=== PATIENT | male | born 1990 | race Caucasian/White ===

== ENCOUNTER 2017-01-05 14:12 | Observation (INO) | payer OTHER ==
[~2017-01-05] VITALS: Ht 182.9 cm; Wt 97.5 kg
[~2017-01-05 14:12] MED LIST: AUGM875T PO; FLUT1SPR9 EACH NARE; PRED20 PO; VENTAER INH
[2017-01-05 14:15] VITALS: BP 138/76; PULSE 62; RESP 23; TEMP 98.3; O2SAT 100
[2017-01-05 14:19] VITALS: BP 138/76; PULSE 58; RESP 23; TEMP 98.5; O2SAT 100
--- NOTE | 2017-01-05 14:24 | PD ---
HPI Chief Complaint: Chest Pain Time Seen by Provider: 14:23 Travel History International Travel<30 days: No Contact w/Intl Traveler<30days: No Traveled to known affect area: No History of Present Illness HPI Patient is a 26-year-old male presents emergency Department with neck pain on the left side of his neck radiating down into his chest and into his arm. Patient's states that initially he thought that he just slept wrong [facility] which showed an acute STEMI and he was transported here emergently as a STEMI alert. The patient states she's never had any heart problems no family history of heart problems at an early age, no high blood pressure high cholesterol. He states that he is trying to get back in shape to rejoin the arm services and states that he runs and never expressed any chest pain when he runs. 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 States symptoms been going on for 3 days in moderate severity and gradually worsening. [facility] Past Medical History Medical History: Denies Significant Hx Diminished Hearing: No Past Surgical History Oral Surgery: Yes (wisdom) Social History Alcohol Use: No Tobacco Use: No (quit) Substance Use: No Allergies-Medications (Allergen,Severity, Reaction): Coded Allergies: No Known Allergies (Unverified , 01/05/17) Reported Meds & Prescriptions Reported Meds & Active Scripts Active No Active Prescriptions or Reported Medications Review of Systems Except as stated in HPI: all other systems reviewed are Neg Physical Exam Narrative GENERAL: Well-developed, well-nourished in no apparent distress. SKIN: Focused skin assessment warm/dry. HEAD: Atraumatic. Normocephalic. EYES: Pupils equal and round. No scleral icterus. No injection or drainage. ENT: No nasal bleeding or discharge. Mucous membranes pink and moist. NECK: Trachea midline. No JVD. CARDIOVASCULAR: Regular rate and rhythm. No murmur appreciated. RESPIRATORY: No accessory muscle use. Clear to auscultation. Breath sounds equal bilaterally. GASTROINTESTINAL: Abdomen soft, non-tender, nondistended. Hepatic and splenic margins not palpable. MUSCULOSKELETAL: No obvious deformities. No clubbing. No cyanosis. No edema. NEUROLOGICAL: Awake and alert. No obvious cranial nerve deficits. Motor grossly within normal limits. Normal speech. PSYCHIATRIC: Appropriate mood and affect; insight and judgment normal. Data Data Last Documented VS Vital Signs Date Time Temp Pulse Resp B/P Pulse Ox O2 Delivery O2 Flow Rate FiO2 01/05/17 15:50 64 18 119/60 100 Nasal Cannula 2 01/05/17 14:30 98.5 Orders Electrocardiogram (01/05/17 14:23) Ckmb (Isoenzyme) Profile (01/05/17 14:23) Complete Blood Count With Diff (01/05/17 14:23) Comprehensive Metabolic Panel (01/05/17 14:) Magnesium (Mg) (01/05/17 14:23) Prothrombin Time / Inr (Pt) (01/05/17 14:23) Act Partial Throm Time (Ptt) (01/05/17 14:23) Troponin I (01/05/17 14:) Chest, Single Ap (01/05/17 14:23) Ecg Monitoring (01/05/17 14:23) Iv Access Insert/Monitor (01/05/17 14:23) Oximetry (01/05/17 14:) Oxygen Administration (01/05/17 14:23) Sodium Chloride 0.9% Flush (Ns Flush) (01/05/17 14:30) CKMB (01/05/17 14:25) CKMB% (01/05/17 14:25) Admit Order (Ed Use Only) (01/05/17 ) Labs Laboratory Tests Test 01/05/17 14:25 White Blood Count 9.0 TH/MM3 Red Blood Count 5.61 MIL/MM3 Hemoglobin 15.5 GM/DL Hematocrit 45.0 % Mean Corpuscular Volume 80.2 FL Mean Corpuscular Hemoglobin 27.5 PG Mean Corpuscular Hemoglobin 34.3 % Concent Red Cell Distribution Width 13.0 % Platelet Count 235 TH/MM3 Mean Platelet Volume 9.2 FL Neutrophils (%) (Auto) 65.5 % Lymphocytes (%) (Auto) 24.2 % Monocytes (%) (Auto) 7.8 % Eosinophils (%) (Auto) 2.1 % Basophils (%) (Auto) 0.4 % Neutrophils # (Auto) 5.9 TH/MM3 Lymphocytes # (Auto) 2.2 TH/MM3 Monocytes # (Auto) 0.7 TH/MM3 Eosinophils # (Auto) 0.2 TH/MM3 Basophils # (Auto) 0.0 TH/MM3 CBC Comment DIFF FINAL Differential Comment Prothrombin Time 10.7 SEC Prothromb Time International 1.0 RATIO Ratio Activated Partial 25.0 SEC Thromboplast Time Sodium Level 141 MEQ/L Potassium Level 4.5 MEQ/L Chloride Level 108 MEQ/L Carbon Dioxide Level 26.4 MEQ/L Anion Gap 7 MEQ/L Blood Urea Nitrogen 16 MG/DL Creatinine 1.18 MG/DL Estimat Glomerular Filtration 75 ML/MIN Rate Random Glucose 85 MG/DL Calcium Level 8.5 MG/DL Magnesium Level 2.0 MG/DL Total Bilirubin 0.5 MG/DL Aspartate Amino Transf 23 U/L (AST/SGOT) Alanine Aminotransferase 35 U/L (ALT/SGPT) Alkaline Phosphatase 104 U/L Total Creatine Kinase 216 U/L Creatine Kinase MB 0.8 NG/ML Troponin I LESS THAN 0.02 NG/ML Total Protein 7.6 GM/DL Albumin 3.7 GM/DL [facility] Medical Decision Making Medical Screen Exam Complete: Yes Emergency Medical Condition: Yes Interpretation(s) EKG shows normal sinus rhythm normal axis normal R-wave progression. Overall rate is 59, there is some small sinus arrhythmia. Intervals within normal limits. There is J-point elevation in II, III, and F aVF without any reciprocal changes. This is a borderline EKG. Differential Diagnosis ACS, AMI, torticollis, Narrative Course Patient was roomed in emergency department, I reviewed his EKGs prior to arrival and in the emergency department, I think the ST elevation seen 23 and aVF is more consistent with early repolarization. He does have a fair story for ACS but his troponin is negative, I think that at this juncture the patient does not meet STEMI criteria however given that there is been significant [facility] and [facility] showing acute STEMI he would benefit from a cardiology consultation and/or stress test. The patient is followed by the [facility] who referred him here for his EKG findings and I think it would be more appropriate to put him in observation status for rapid exclusion rather than [facility] which may take some time. This was discussed with the patient who is agreeable for observation. Diagnosis Primary Impression: Chest pain Admitting Information Admitting Physician Requests: Observation Scripts No Active Prescriptions or Reported Meds Condition: Stable Reji Romano MD Jan 05, 2017 14:24
[2017-01-05 14:30] VITALS: BP 138/86; PULSE 59; RESP 18; TEMP 98.5; O2SAT 100
[2017-01-05] MEDS ORDERED: SODIUM CHLORIDE 0.9% FLUSH 10 ML FLUSH IVF PRN (14:30)
[2017-01-05 14:54] LABS: AUTOMATED NEUTROPHIL # 5.9 TH/MM3 (1.8-7.7); BASOPHIL % 0.4 % (0.0-2.0); EOSINOPHIL # 0.2 TH/MM3 (0-0.4); EOSINOPHIL % 2.1 % (0.0-4.0); HEMO FLAGS DIFF FINAL; LYMPH % 24.2 % (9.0-44.0); LYMPHOCYTE # 2.2 TH/MM3 (1.0-4.8); MEAN CELL VOLUME 80.2 FL (80.0-100.0); MEAN CORPUSCULAR HEMOGLOBIN 27.5 PG (27.0-34.0); MEAN CORPUSCULAR HGB CONC 34.3 % (32.0-36.0); MONO % 7.8 % (0.0-8.0); NEUT % 65.5 % (16.0-70.0); PLATELET COUNT 235 TH/MM3 (150-450); RED BLOOD COUNT 5.61 MIL/MM3 (4.50-5.90)
[2017-01-05 15:12] LABS: ALT (GPT) 35 U/L (12-78); ANION GAP 7 MEQ/L (5-15); AST (GOT) 23 U/L (15-37); BICARBONATE 26.4 MEQ/L (21.0-32.0); BLOOD UREA NITROGEN 16 MG/DL (7-18); CHLORIDE 108 MEQ/L (98-107); GLOMERULAR FILTRATION RATE 75 ML/MIN (>89); POTASSIUM 4.5 MEQ/L (3.5-5.1); SODIUM (NA) 141 MEQ/L (136-145)
[2017-01-05 15:13] LABS: PROTHROMBIN TIME - PATIENT 10.7 SEC (9.8-11.6)
[2017-01-05 15:16] LABS: ALKALINE PHOSPHATASE 104 U/L (45-117); CREATINE KINASE 216 U/L (39-308); TOTAL BILIRUBIN ADULT 0.5 MG/DL (0.2-1.0)
--- NOTE | 2017-01-05 15:21 | RADRPT ---
EXAM DATE/TIME: 01/05/2017 14:41 [facility] COMPARISON: No previous studies available for comparison. INDICATIONS : Chest pain, back pain. MEDICAL HISTORY : None. SURGICAL HISTORY : None. ENCOUNTER: Initial ACUITY: 2 days PAIN SCORE: 8/10 LOCATION: Bilateral chest FINDINGS: A single view of the chest demonstrates the lungs to be symmetrically aerated without evidence of mas s, infiltrate or effusion. The cardiomediastinal contours are unremarkable. Osseous structures are intact. CONCLUSION: Normal examination. Won Mishra Jr., MD on January 05, 2017 at 15:19 Board Certified Radiologist. This report was verified electronically.
[2017-01-05 15:29] LABS: CKMB 0.8 NG/ML (0.5-3.6)
[2017-01-05 15:50] VITALS: BP 119/60; PULSE 64; RESP 18; O2SAT 100
--- NOTE | 2017-01-05 16:22 | EKG ---
Date Performed: 01/05/2017 Time Performed: 14:16:26 PTAGE: 26 years EKG: SINUS BRADYCARDIA BORDERLINE ECG NO PREVIOUS TRACING DOCTOR: Dave Solis Interpretating Date/Time 01/05/2017 16:20:12
[2017-01-05] MEDS ORDERED: ONDANSETRON HCL 4 MG/2 ML VIAL IV PRN (17:00)
[2017-01-05] MEDS ORDERED: ACETAMINOPHEN 500 MG CPLT PO PRN (17:00)
[2017-01-05] MEDS ORDERED: NITROGLYCERIN 0.4 MG SL 25 TABS/BTL SL PRN (17:00)
[2017-01-05 17:45] VITALS: BP 118/53; PULSE 59; RESP 18; O2SAT 98
[2017-01-05 18:35] VITALS: BP 118/53
[2017-01-05 19:24] LABS: CREATINE KINASE 210 U/L (39-308)
[2017-01-05] MEDS: SODIUM CHLORIDE 0.9% FLUSH 10 ML FLUSH IV FLUSH SCH (20:30)
[2017-01-05 21:56] LABS: CREATINE KINASE 191 U/L (39-308)
[2017-01-05 22:09] LABS: CKMB 0.9 NG/ML (0.5-3.6)
[2017-01-06] VITALS: BP 123/63; PULSE 60; RESP 18; TEMP 98; O2SAT 98
[2017-01-06 01:18] VITALS: PULSE 46
[2017-01-06 07:13] VITALS: BP 98/54; PULSE 58; RESP 16; TEMP 97.9; O2SAT 97
[2017-01-06 07:37] VITALS: O2SAT 96
[2017-01-06] MEDS: SODIUM CHLORIDE 0.9% FLUSH 10 ML FLUSH IV FLUSH SCH (07:53)
[2017-01-06 08:00] VITALS: PULSE 54
[2017-01-06] MEDS ORDERED: ASPIRIN 325 MG TAB PO SCH (09:00)
--- NOTE | 2017-01-06 09:54 | MH ---
cc: JACKY LUCIO DATE OF ADMISSION 01/05/2017 HISTORY This is a 26-year-old who is admitted to the hospital for chest discomfort. This actually began the day before yesterday and was described as a significant pain in his mid-substernum. This was associated with left neck pain and he went to the [facility]. At the [facility], he had an electrocardiogram that showed ST-segment elevations which was interpreted as acute RI and was transported emergently as a STEMI alert. No associated shortness of breath, nausea or diaphoresis been present. No exertional discomfort has been present. He is currently feeling well. His chest discomfort has essentially resolved. He still has some very mild left neck pain which he attributes to sleeping wrong. PAST MEDICAL HISTORY His past medical history is essentially unremarkable. He is a nonsmoker. 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 Otherwise as noted above and is otherwise unremarkable. MEDICATIONS He takes no medications. SOCIAL HISTORY The patient does not smoke, drink or use recreational drugs. 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 REVIEW OF SYSTEMS Otherwise unremarkable. PHYSICAL EXAM On physical exam, his blood pressure is 120/60, pulse is 60 and regular. NECK: There is no neck vein distension. Mild tenderness is present to palpation on the left side. LUNGS: His lungs were clear. CARDIOVASCULAR: Exam reveals a regular rate and rhythm. There is no significant murmur, no gallop is noted. ABDOMEN: Soft. There is no tenderness or organomegaly. EXTREMITIES: Reveals no edema. Electrocardiogram demonstrates sinus rhythm with ST-segment elevation consistent with early repolarization. LABORATORY EXAMINATION Otherwise unremarkable. ASSESSMENT The patient has atypical chest discomfort with early repolarization. We will plan an exercise test to rule out occult coronary disease. MD ALONZO Burnett/AYSHA /6:46 AM /9:54 AM
[2017-01-06 11:57] VITALS: BP 121/73; PULSE 72; RESP 16; TEMP 98; O2SAT 96
[2017-01-06] MEDS ORDERED: KETOROLAC TROMETHAMINE 30 MG/ML (IVP) VIAL IV PUSH ONE (12:00)
--- NOTE | 2017-01-06 12:11 | HHI.DCPOC ---
Discharge Care Plan Diagnosis: (1) Atypical chest pain (2) Neck pain, musculoskeletal Goals to Promote Your Health * To prevent worsening of your condition and complications * To maintain your health at the optimal level Directions to Meet Your Goals Take your medications as prescribed Follow your dietary instruction Follow activity as directed Keep your appointments as scheduled Take your immunizations and boosters as scheduled If your symptoms worsen call your PCP, if no PCP go to Urgent Care Center or Emergency Room Smoking is Dangerous to Your Health. Avoid second hand smoke Call the 24-hour hour crisis hotline for domestic abuse at Kecia Mccann Jan 06, 2017 12:11
[2017-01-06] MEDS ORDERED: CYCL5TAB PO (12:14)
[2017-01-06] MEDS ORDERED: NAPR500T PO (12:14)
--- NOTE | 2017-01-06 13:25 | EKG ---
Date Performed: 01/05/2017 Time Performed: 17:41:56 PTAGE: 26 years EKG: SINUS BRADYCARDIA WITH SINUS ARRHYTHMIA EARLY REPOLARIZATION BORDERLINE ECG PREVIOUS TRACING : 01/05/2017 14.16 Since previous tracing, no significant change noted DOCTOR: Galdino Ly Interpretating Date/Time 01/06/2017 13:18:56
--- NOTE | 2017-01-06 13:25 | EKG ---
Date Performed: 01/05/2017 Time Performed: 22:13:50 PTAGE: 26 years EKG: SINUS BRADYCARDIA EARLY REPOLARIZATION BORDERLINE ECG PREVIOUS TRACING : 01/05/2017 17.41 DOCTOR: Galdino Ly Interpretating Date/Time 01/06/2017 13:16:53
--- NOTE | 2017-01-06 13:30 | TR ---
Date Performed: 01/06/2017 Time Performed: 11:08:25 DOCTOR: Galdino Ly DRUG LIST: CLINICAL HISTORY: CHEST PAIN REASON FOR TEST: REASON FOR ENDING: OBSERVATION: CONCLUSION: Adam protocol completed. Stopped sec to exceeding target heart rate and leg fatigue . Maximum HB=873 Target HR Achieved=88.0% Maximum VX=415/72 Total Exercise Time=7:58. No reprod chest discomfort. No ectopy. Early repolarization at baseline, st segment normalized at peak. Good exercis e tolerance. Normal bp response. Recovery quick and unremarkable. COMMENTS: Patient exercised using the Adam protocol. No electrocardiographic changes were seen to suggest ischemia. Hemodynamic response to exercise was normal. No significant arrhythmia was prese nt.
== END 2017-01-06 13:40 | disposition home or self-care (01) ==
LOC: NEPE 14:12 → NEDA 15:50 → NEPFCDU 18:36
PROVIDERS: ADMIT Internal Medicine Cardiovascular Disease; ATTEND Internal Medicine Cardiovascular Disease
DX: R07.89 Other chest pain (principal); M54.2 Cervicalgia; I49.8 Other specified cardiac arrhythmias; R00.1 Bradycardia, unspecified
CPT/HCPCS: 71010; 80053; 82550; 82552; 83735; 84484; 85025; 85610; 85730; 93005; 93017; 99285; G0378; J1885